=== PATIENT | female | born 1995 | race Caucasian/White ===

== ENCOUNTER 2017-09-12 00:15 | Emergency (ER) | payer MEDICAID ==
[~2017-09-12] VITALS: Ht 157.5 cm; Wt 80.7 kg
[~2017-09-12 00:15] MED LIST: PREN1SGL25 PO
[2017-09-12 00:24] VITALS: BP 97/62
--- NOTE | 2017-09-12 00:31 | NUR ---
Patient to bed 01.
--- NOTE | 2017-09-12 00:32 | NUR ---
22 Y/O F W/C/O LEFT HAND PAIN S/P FALL WHILE AT HOME;DENIES LOC. NO S/S OF DISTRESS NOTED.ER MD MADE AWARE.
--- NOTE | 2017-09-12 00:39 | NUR ---
PT TAKEN TO X-RAY. AMBULATORY.
--- NOTE | 2017-09-12 00:48 | NUR ---
YI NGUYỄN AT BEDSIDE EVALUATING PT.
[2017-09-12] MEDS ORDERED: IBUPROFEN 600 MG TAB PO ONE (01:00)
[2017-09-12 01:25] VITALS: BP 114/67
== END 2017-09-12 01:25 | disposition home or self-care (01) ==
LOC: MED 00:15
DX: S62.625A Displaced fracture of middle phalanx of left ring finger, initial encounter for closed fracture (principal); W01.0XXA Fall on same level from slipping, tripping and stumbling without subsequent striking against object, initial encounter; Y93.89 Activity, other specified; Y92.89 Other specified places as the place of occurrence of the external cause; Y99.8 Other external cause status
CPT/HCPCS: 73130; 81025; 99284

== ENCOUNTER 2017-10-26 17:38 | Emergency (ER) | payer MEDICAID ==
[~2017-10-26] VITALS: Ht 157.5 cm; Wt 85.3 kg
[2017-10-26 18:19] VITALS: BP 124/80
--- NOTE | 2017-10-26 18:24 | NUR ---
NEED FOR SOCIAL WORK. PT IS 22 Y/O WITH 3 PREGNANCIES WITH LAST IN FEBRUARY OF THIS YEAR.
--- NOTE | 2017-10-26 20:10 | NUR ---
22/ BIB SELF C/O FEVER TODAY. COUGH SINCE YESTERDAY. MOUTH SORES SINCE MONDAY. STATES SHE DID NOT TAKE ANY TYLENOL TODAY, OCCASIONAL PRODUCTIVE COUGH WITH WHITE PHLEGM. DENIES BLOOD IN SPUTUM. RESP EVEN AND UNLABORED, ON RA@ 98%. HX DENIES. AX DENIES. SX CSECTION FEBRUARY 2017.
--- NOTE | 2017-10-26 20:55 | NUR ---
RSV AND INFLUENZA COLLECTED AND SENT WITH LAB PERSONNEL
[2017-10-26 22:58] VITALS: BP 122/74
--- NOTE | 2017-10-26 22:59 | NUR ---
Patient discharged with v/s stable. Written and verbal after care instructions given and explained. Patient alert, oriented and verbalized understanding of instructions. Ambulatory with steady gait. All questions addressed prior to discharge. ID band removed. Patient advised to follow up with PMD. Rx of TAMIFLU 75MG BID X 5DAYS given. Patient educated on indication of medication including possible reaction and side effects. Opportunity to ask questions provided and answered.
== END 2017-10-26 22:59 | disposition home or self-care (01) ==
LOC: MED 17:38
DX: R05 Cough (principal); R50.9 Fever, unspecified
CPT/HCPCS: 36415; 87804; 99284